=== PATIENT | male | born 1950 | race Caucasian/White ===

== ENCOUNTER → 2024-03-15 | Outpatient (CLI) | payer MEDICARE, BC, SELFPAY ==
[2024-03-15 08:10] LABS: Collection Type, Urine Clean Catch
[2024-03-15 08:11] LABS: Squamous Epithelial Cell,Urine 0 /hpf (0-5)
[2024-03-15 08:44] LABS: Glucose Estimated Average 143 mg/dL (80-131); Hemoglobin A1C 6.6 % Hgb (4.8-6.0)
[2024-03-15 08:49] LABS: Bilirubin,Urine Negative (Negative); Blood,Urine Negative (Negative); Clarity,Urine Clear (Clear/Hazy); Color,Urine Lt-Yellow (Lt Yel-Yel); Glucose, Urine 4+ (Negative); Ketones,Urine Negative (Negative); Leukocyte Esterase,Urine Negative (Negative); Nitrite,Urine Negative (Negative); Protein,Urine Negative (Neg - Trace); RBC,Urine 1 /hpf (0-3); Specific Gravity,Urine 1.023 (1.001-1.035); Urobilinogen,Urine Negative mg/dL (0.0-1.0); WBC,Urine 1 /hpf (0-5)
[2024-03-15 09:07] LABS: Alanine Aminotransferase 19 U/L (10-49); Albumin, Serum 4.1 gm/dL (3.4-4.8); Alkaline Phosphatase 55 U/L (46-116); Anion Gap 5 (7-16); Aspartate Amino Transferase 15 U/L (0-34); BUN/Creatinine Ratio 35 Ratio (12-20); Bilirubin,Total 0.4 mg/dL (0.3-1.2); Blood Urea Nitrogen 38 mg/dL (9-23); Calcium 9.5 mg/dL (8.3-10.6); Calcium (Corrected) 9.5 mg/dL (8.5-10.1); Carbon Dioxide 24.5 mMol/L (20.0-31.0); Cardiac Risk Estimate 2.7 RATIO (4.0-6.7); Chloride 109 mMol/L (98-107); Cholesterol 150 mg/dL (132-200); Creatinine (Component) 1.1 mg/dL (0.6-1.3); Globulin 2.1 gm/dL (2.3-3.5); Glucose 147 mg/dL (74-106); HDL Cholesterol 55 mg/dL (40-60); LDL Cholesterol,Calculated 72 mg/dL (0-130); Osmolality,Calculated 287 (275-295); Potassium 5.3 mMol/L (3.4-5.1); Sodium 138 mMol/L (136-145); Total Protein 6.2 gm/dL (5.7-8.2); Triglycerides 114 mg/dL (30-150); eGFR > 60 See Note
== END | disposition home or self-care (01) ==
PROVIDERS: PCP Internal Medicine; Referring Provider Internal Medicine; Visit Provider Internal Medicine
DX: E11.9 Type 2 diabetes mellitus without complications (principal); I10 Essential (primary) hypertension; E78.5 Hyperlipidemia, unspecified
CPT/HCPCS: 36415; 80053; 80061; 81001; 83036

== ENCOUNTER → 2024-08-29 | Outpatient (CLI) | payer MEDICARE, BC, SELFPAY ==
[2024-08-29 08:44] LABS: Basophils # (Auto) 0.1 Thou/mm3 (0.0-0.2); Basophils % (Auto) 1 % (0-2.5); Eosinophils # (Auto) 0.2 Thou/mm3 (0.0-0.5); Eosinophils % (Auto) 4 % (0-10); Hematocrit 39.4 % (41.0-53.0); Hemoglobin 12.5 g/dL (13.5-16.0); Immature Granulocytes % (Auto) 0 % (0-0); Immature Granulocytes Auto 0.02 Thou/mm3 (0.00-0.00); Lymphocytes # (Auto) 1.8 Thou/mm3 (1.0-4.8); Lymphocytes % (Auto) 28 % (10-50); Mean Corpuscular HGB Conc 31.7 g/dl (31.0-37.0); Mean Corpuscular Hemoglobin 28.9 pg (25.0-35.0); Mean Corpuscular Volume 91 fL (80-100); Monocytes # (Auto) 0.7 Thou/mm3 (0.0-0.8); Monocytes % (Auto) 11 % (0-12); Neutrophils # (Auto) 3.5 Thou/mm3 (1.8-7.7); Neutrophils % (Auto) 56 % (37-80); Nucleated Red Blood Cell % 0 /100 WBC (0); Platelet Count 425 Thou/mm3 (140-440); RDW Standard Deviation 52.4 fL (35.1-43.9); Red Blood Count 4.33 Miln/mm3 (4.50-5.90); White Blood Count 6.3 Thou/mm3 (3.8-10.6)
[2024-08-29 08:59] LABS: Alanine Aminotransferase 18 U/L (10-49); Albumin, Serum 3.8 gm/dL (3.4-4.8); Albumin/Globulin Ratio 1.4 (1.2-2.2); Alkaline Phosphatase 160 U/L (46-116); Anion Gap 9 (7-16); Aspartate Amino Transferase 19 U/L (0-34); BUN/Creatinine Ratio 38 Ratio (12-20); Bilirubin,Total 0.3 mg/dL (0.3-1.2); Blood Urea Nitrogen 38 mg/dL (9-23); Calcium 9.2 mg/dL (8.3-10.6); Calcium (Corrected) 9.4 mg/dL (8.5-10.1); Cardiac Risk Estimate 3.1 RATIO (4.0-6.7); Chloride 112 mMol/L (98-107); Cholesterol 138 mg/dL (132-200); Globulin 2.7 gm/dL (2.3-3.5); Glucose 127 mg/dL (74-106); HDL Cholesterol 44 mg/dL (40-60); LDL Cholesterol,Calculated 67 mg/dL (0-130); Osmolality,Calculated 297 (275-295); Potassium 4.8 mMol/L (3.4-5.1); Sodium 144 mMol/L (136-145); Thyroid Stimulating Hormone 1.49 uIU/mL (0.55-4.78); Total Protein 6.5 gm/dL (5.7-8.2); Triglycerides 136 mg/dL (30-150); eGFR > 60 See Note
[2024-08-29 09:01] LABS: Prostate Specific Antigen 0.16 ng/mL (0-4.00)
[2024-08-29 09:06] LABS: Vitamin B12 511 pg/mL (211-911); Vitamin D 25 Hydroxy Total 50.4 ng/mL (7.3-40.2)
[2024-08-29 09:17] LABS: Glucose Estimated Average 108 mg/dL (80-131); Hemoglobin A1C 5.4 % Hgb (4.8-6.0)
[2024-08-29 12:20] LABS: Collection Type, Urine Clean Catch; RBC,Urine 0 /hpf (0-3); Squamous Epithelial Cell,Urine 0 /hpf (0-5)
[2024-08-29 14:02] LABS: Bilirubin,Urine Negative (Negative); Blood,Urine Negative (Negative); Clarity,Urine Clear (Clear/Hazy); Color,Urine Lt-Yellow (Lt Yel-Yel); Glucose, Urine 4+ (Negative); Ketones,Urine Negative (Negative); Leukocyte Esterase,Urine Negative (Negative); Nitrite,Urine Negative (Negative); Protein,Urine Negative (Neg - Trace); Specific Gravity,Urine 1.023 (1.001-1.035); Urobilinogen,Urine Negative mg/dL (0.0-1.0); WBC,Urine < 1 /hpf (0-5)
[2024-08-29 14:04] LABS: Creatinine MALB Rnd Ur 89 mg/dL (30-125); Microalbumin, Random Urine < 3 mg/L (0-300)
== END | disposition home or self-care (01) ==
LOC: COPL 07:53
PROVIDERS: PCP Internal Medicine; Referring Provider Internal Medicine; Visit Provider Internal Medicine
DX: D51.9 Vitamin B12 deficiency anemia, unspecified (principal); E11.9 Type 2 diabetes mellitus without complications; E55.9 Vitamin D deficiency, unspecified; E78.5 Hyperlipidemia, unspecified; I10 Essential (primary) hypertension
CPT/HCPCS: 36415; 80053; 80061; 81001; 82043; 82306; 82570; 82607; 83036; 84153; 84443; 84550; 85025

== ENCOUNTER → 2024-09-30 | Outpatient (CLI) | payer MEDICARE, BC, SELFPAY ==
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
== END | disposition home or self-care (01) ==
LOC: CDIM 09:54
PROVIDERS: PCP Internal Medicine; Referring Provider Orthopaedic Surgery; Visit Provider Orthopaedic Surgery
DX: S82.202A Unspecified fracture of shaft of left tibia, initial encounter for closed fracture (principal); V89.2XXA Person injured in unspecified motor-vehicle accident, traffic, initial encounter
CPT/HCPCS: 73562; 73590

== ENCOUNTER → 2024-11-21 | Outpatient (CLI) | payer MEDICARE, BC, SELFPAY ==
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
== END | disposition home or self-care (01) ==
LOC: CDIM 10:00
PROVIDERS: PCP Internal Medicine; Referring Provider Orthopaedic Surgery; Visit Provider Orthopaedic Surgery
DX: S82.251A Displaced comminuted fracture of shaft of right tibia, initial encounter for closed fracture (principal); S89.092A Other physeal fracture of upper end of left tibia, initial encounter for closed fracture; X58.XXXA Exposure to other specified factors, initial encounter
CPT/HCPCS: 73562; 73590

== ENCOUNTER → 2024-12-27 | Outpatient (CLI) | payer MEDICARE, BC, SELFPAY ==
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
== END | disposition home or self-care (01) ==
LOC: CDIM 09:31
PROVIDERS: PCP Internal Medicine; Referring Provider Orthopaedic Surgery; Visit Provider Orthopaedic Surgery
DX: S82.251D Displaced comminuted fracture of shaft of right tibia, subsequent encounter for closed fracture with routine healing (principal); S89.09 Other physeal fracture of upper end of tibia; S29.9XXD Unspecified injury of thorax, subsequent encounter; V09.9XXD Pedestrian injured in unspecified transport accident, subsequent encounter
CPT/HCPCS: 71130; 73000; 73560; 73590

== ENCOUNTER → 2025-01-31 | Outpatient (CLI) | payer MEDICARE, BC, SELFPAY ==
[2025-01-31 08:48] LABS: Collection Type, Urine Clean Catch
[2025-01-31 09:03] LABS: Basophils # (Auto) 0.1 Thou/mm3 (0.0-0.2); Basophils % (Auto) 1 % (0-2.5); Eosinophils # (Auto) 0.2 Thou/mm3 (0.0-0.5); Eosinophils % (Auto) 3 % (0-10); Hematocrit 42.3 % (41.0-53.0); Hemoglobin 14.1 g/dL (13.5-16.0); Immature Granulocytes Auto 0.02 Thou/mm3 (0.00-0.00); Lymphocytes # (Auto) 1.7 Thou/mm3 (1.0-4.8); Lymphocytes % (Auto) 27 % (10-50); Mean Corpuscular HGB Conc 33.3 g/dl (31.0-37.0); Mean Corpuscular Hemoglobin 29.7 pg (25.0-35.0); Mean Corpuscular Volume 89 fL (80-100); Monocytes # (Auto) 0.6 Thou/mm3 (0.0-0.8); Monocytes % (Auto) 10 % (0-12); Neutrophils # (Auto) 3.8 Thou/mm3 (1.8-7.7); Neutrophils % (Auto) 59 % (37-80); Nucleated Red Blood Cell # 0.00 Thou/mm3 (0.00-0.00); Nucleated Red Blood Cell % 0 /100 WBC (0); Platelet Count 283 Thou/mm3 (140-440); RDW Standard Deviation 43.8 fL (35.1-43.9); Red Blood Count 4.75 Miln/mm3 (4.50-5.90); White Blood Count 6.5 Thou/mm3 (3.8-10.6)
[2025-01-31 09:12] LABS: Glucose Estimated Average 134 mg/dL (80-131); Hemoglobin A1C 6.3 % Hgb (4.8-6.0)
[2025-01-31 09:20] LABS: Alanine Aminotransferase 26 U/L (10-49); Albumin, Serum 4.1 gm/dL (3.4-4.8); Albumin/Globulin Ratio 1.7 (1.2-2.2); Alkaline Phosphatase 159 U/L (46-116); Anion Gap 11 (7-16); Aspartate Amino Transferase 15 U/L (0-34); BUN/Creatinine Ratio 29 Ratio (12-20); Bilirubin,Total 0.5 mg/dL (0.3-1.2); Blood Urea Nitrogen 32 mg/dL (9-23); Calcium 9.9 mg/dL (8.3-10.6); Calcium (Corrected) 9.9 mg/dL (8.5-10.1); Carbon Dioxide 21.0 mMol/L (20.0-31.0); Cardiac Risk Estimate 3.3 RATIO (4.0-6.7); Chloride 110 mMol/L (98-107); Cholesterol 150 mg/dL (132-200); Creatinine (Component) 1.1 mg/dL (0.6-1.3); Globulin 2.4 gm/dL (2.3-3.5); Glucose 166 mg/dL (74-106); HDL Cholesterol 45 mg/dL (40-60); LDL Cholesterol,Calculated 72 mg/dL (0-130); Osmolality,Calculated 294 (275-295); Potassium 4.8 mMol/L (3.4-5.1); Sodium 142 mMol/L (136-145); Total Protein 6.5 gm/dL (5.7-8.2); Triglycerides 165 mg/dL (30-150); eGFR > 60 See Note
[2025-01-31 09:31] LABS: Bilirubin,Urine Negative (Negative); Blood,Urine Negative (Negative); Clarity,Urine Clear (Clear/Hazy); Color,Urine Lt-Yellow (Lt Yel-Yel); Glucose, Urine 4+ (Negative); Ketones,Urine Negative (Negative); Leukocyte Esterase,Urine Negative (Negative); Nitrite,Urine Negative (Negative); PH,Urine 6.0 (5.0-7.0); Protein,Urine Negative (Neg - Trace); RBC,Urine 1 /hpf (0-3); Specific Gravity,Urine 1.017 (1.001-1.035); Squamous Epithelial Cell,Urine < 1 /hpf (0-5); Urobilinogen,Urine Negative mg/dL (0.0-1.0); WBC,Urine < 1 /hpf (0-5)
[2025-01-31 09:47] LABS: Creatinine MALB Rnd Ur 58 mg/dL (30-125); Microalbumin, Random Urine < 3 mg/L (0-300)
== END | disposition home or self-care (01) ==
LOC: COPL 08:09
PROVIDERS: PCP Internal Medicine; Referring Provider Internal Medicine; Visit Provider Internal Medicine
DX: E11.9 Type 2 diabetes mellitus without complications (principal); I10 Essential (primary) hypertension; E78.5 Hyperlipidemia, unspecified
CPT/HCPCS: 36415; 80053; 80061; 81001; 82043; 82570; 83036; 85025